=== PATIENT | female | born 1975 | race Caucasian/White ===

== ENCOUNTER 2017-11-03 20:46 | Emergency (ER) | payer BC ==
--- NOTE | 2017-11-03 21:25 | ED ---
Lower Extremity - HPI Summary HPI Summary: This patient is a 42 year old F presenting to [facility] c/o left hip pain that began today. Pt states she was sitting at work when she had a sudden onset of pain that got worse through-out the day. The patient rates the pain 8/10 in severity. Symptoms aggravated by walking and going up stairs. Patient reports hamstring swelling. Patient denies injury. Pt states she has not done a lot of physical labor or physical activity. Hx of trochanteric bursitis - History of Current Complaint Chief Complaint: EDExtremityLower Stated Complaint: RIGHT HIP/THIGH PAIN Time Seen by Provider: 11/03/17 21:16 Hx Obtained From: Patient Hx Last Menstrual Period: 11/21/11 Mechanism Of Injury: Other - none Onset of Pain: Immediate Onset/Duration: Still Present Severity Initially: Moderate Severity Currently: Severe Pain Intensity: 8 Pain Scale Used: 0-10 Numeric Timing: Constant Location: Is Discrete @ - right hip Associated Signs And Symptoms: Positive: Swelling - hamstring Able to Bear Weight: Yes - Allergies/Home Medications Allergies/Adverse Reactions: Allergies Allergy/AdvReac Type Severity Reaction Status Date / Time No Known Allergies Allergy Verified 11/03/17 20:56 PMH/Surg Hx/FS Hx/Imm Hx Endocrine/Hematology History: Denies: Hx Blood Transfusions, Hx Bone Marrow Disease, Hx Diabetes, Hx Thyroid Disease History: Denies: Hx Chronic Renal Failure Musculoskeletal History: Reports: Other Musculoskeletal History - trochanteric bursitis Neurological History: Denies: Hx CVA, Hx Transient Ischemic Attacks (TIA) - Surgical History Surgery Procedure, Year, and Place: cyst removed from left side face and bone graft 2010 Infectious Disease History: No Infectious Disease History: Denies: Traveled Outside the [place] in Last 30 Days - Family History Known Family History: Positive: Hypertension - Social History Occupation: Employed Full-time Lives: With Family Alcohol Use: Rare Substance Use Type: Reports: None Smoking Status (MU): Light Every Day Tobacco Smoker Review of Systems Negative: Fever Positive: Edema, Other - right hip pain All Other Systems Reviewed And Are Negative: Yes Physical Exam - Summary Physical Exam Summary: Appearance: Well-appearing, Well-nourished, lying in bed comfortably Skin: Warm, dry, no obvious rash Eyes: sclera anicteric, no conjunctival pallor ENT: mucous membranes moist, pharynx appears normal Neck: Supple, nontender Respiratory: Clear to auscultation, no signs of respiratory distress Cardiovascular: Normal S1, S2. No murmurs. Normal distal pulses in tibial and radial bilaterally. Abdomen: Soft, nontender, normal active bowel sounds present Musculoskeletal: TTP over the greater trochanter of the right femur,, Strength/ ROM Intact Neurological: A&Ox3, awake and alert, mentation is normal, speech is fluent and appropriate Psychiatric: affect is normal, does not appear anxious or depressed Triage Information Reviewed: Yes Vital Signs On Initial Exam: Initial Vitals Temp Pulse Resp BP Pulse Ox 98.7 F 106 16 161/95 98 11/03/17 20:53 11/03/17 20:53 11/03/17 20:53 11/03/17 20:53 11/03/17 20:53 Vital Signs Reviewed: Yes Diagnostics - Vital Signs Vital Signs Temp Pulse Resp BP Pulse Ox 11/03/17 20:53 98.7 F 106 16 161/95 98 - Laboratory Lab Statement: Any lab studies that have been ordered have been reviewed, and results considered in the medical decision making process. Lower Extremity Course/Dx - Course Assessment/Plan: This patient is a 42 year old F presenting to [facility] c/o left hip pain that began today. Pt states she was sitting at work when she had a sudden onset of pain that got worse through-out the day. The patient rates the pain 8/10 in severity. Symptoms aggravated by walking and going up stairs. Patient reports hamstring swelling. Patient denies injury. Pt states she has not done a lot of physical labor or physical activity. Hx of trochanteric bursitis. The patient was instructed to rest and use OTC the pain medications. She states she is able to do this because she has the next two days off. Dx. trochanteric bursitis. Patient will be discharged. The patient is agreeable with this plan. - Diagnoses Provider Diagnoses: Trochanteric bursitis Discharge - Sign-Out/Discharge Documenting (check all that apply): Patient Departure - Discharge Plan Condition: Good Disposition: HOME Patient Education Materials: Hip Bursitis (ED) Referrals: Lottie Catalan MD [Primary Care Provider] - Additional Instructions: This can take a number of weeks to go away completely. He can take over-the- counter analgesics for the pain and try to limit any activity that makes it worse. It does not seem like it is getting better and sometimes an injection can be done which will help, and this can be done by your orthopedic surgeon. - Billing Disposition and Condition Condition: GOOD Disposition: Home - Attestation Statements Document Initiated by Eva: Yes Documenting Scribe: Gómez De La Vega Provider For Whom Eva is Documenting (Include Credential): Phong Lopez MD Scribe Attestation: I, Gómez De La Vega , scribed for Phong Lopez MD on 11/04/17 at 0210. Scribe Documentation Reviewed: Yes Provider Attestation: The documentation as recorded by the Gómez block accurately reflects the service I personally performed and the decisions made by me, Phong Lopez MD
[2017-11-03 21:45] VITALS: BP 137/86
== END 2017-11-03 21:44 | disposition home or self-care (01) ==
LOC: ED 20:46
DX: M70.62 Trochanteric bursitis, left hip (principal); M25.552 Pain in left hip; M79.652 Pain in left thigh
CPT/HCPCS: 99284

== ENCOUNTER 2017-11-24 18:33 | Emergency (ER) | payer BC ==
[2017-11-24 18:50] VITALS: BP 154/85
--- NOTE | 2017-11-24 19:04 | UC ---
Knee Pain HPI - HPI Summary HPI Summary: The patient is a 42-year-old female that slipped and fell on wet grass today and injured her left hand. She occurred about 1:00. He is right handed. Pain is located around the left third MCP joint. Denies any wrist elbow or shoulder pain. She denies any other injury from the fall. She declines anything for pain. - History of Current Complaint Chief Complaint: UCUpperExtremity Stated Complaint: HAND INURY Time Seen by Provider: 11/24/17 18:57 Hx Obtained From: Patient Hx Last Menstrual Period: 11/12/17 Onset/Duration: Sudden Onset Severity Initially: Moderate Severity Currently: Moderate Pain Intensity: 7 Pain Scale Used: 0-10 Numeric Character: Aching, Throbbing Aggravating Factor(s): Movement Associated Signs And Symptoms: Positive: Swelling, Bruising Able to Bear Weight: Yes - Allergies/Home Medications Allergies/Adverse Reactions: Allergies Allergy/AdvReac Type Severity Reaction Status Date / Time medication for pink eye Allergy Blurred Uncoded 11/24/17 18:51 Vision Home Medications: Home Medications Levothyroxine TAB* [Synthroid 25 MCG TAB*] 25 mcg PO DAILY 11/24/17 [History Confirmed 11/24/17] PMH/Surg Hx/FS Hx/Imm Hx Previously Healthy: Yes - Surgical History Surgical History: Yes Surgery Procedure, Year, and Place: cyst removed from left side face and bone graft 2009. miniscus left leg 2013 - Family History Known Family History: Positive: Hypertension Negative: Cardiac Disease, Diabetes - Social History Alcohol Use: Rare Substance Use Type: None Smoking Status (MU): Light Every Day Tobacco Smoker When Did the Patient Quit Smoking/Using Tobacco: started again after 14 years d/ t divorce Review of Systems Constitutional: Negative Skin: Negative Eyes: Negative ENT: Negative Respiratory: Negative Cardiovascular: Negative Gastrointestinal: Negative Genitourinary: Negative Motor: Negative Neurovascular: Negative Musculoskeletal: Arthralgia Neurological: Negative Psychological: Negative All Other Systems Reviewed And Are Negative: Yes Physical Exam Triage Information Reviewed: Yes Appearance: Well-Appearing, No Pain Distress, Well-Nourished Vital Signs: Initial Vital Signs Temp 99.7 F 11/24/17 18:42 Pulse 90 11/24/17 18:42 Resp 12 11/24/17 18:42 BP 154/85 11/24/17 18:42 Pulse Ox 99 11/24/17 18:42 Vital Signs Reviewed: Yes Eyes: Positive: Conjunctiva Clear ENT: Positive: Hearing grossly normal. Negative: Nasal congestion, Nasal drainage, Trismus, Hoarse voice Neck: Positive: Supple, Nontender, No Lymphadenopathy Respiratory: Positive: Lungs clear, Normal breath sounds, No respiratory distress Cardiovascular: Positive: RRR, Pulses Normal Musculoskeletal: Positive: ROM Limited @ - left middle finger Psychological Exam: Normal Skin Exam: Normal Diagnostics - Radiology No standard instances Xray Interpretation: No Acute Changes Radiology Interpretation Completed By: ED Physician Knee Pain Course/Dx - Differential Dx/Diagnosis Provider Diagnoses: LMF sprain Discharge - Sign-Out/Discharge Documenting (check all that apply): Patient Departure All imaging exams completed and their final reports reviewed: No - Discharge Plan Condition: Stable Disposition: HOME Patient Education Materials: Finger Sprain (ED) Referrals: Lottie Catalan MD [Primary Care Provider] - 5 Days (recheck in 5-10 days if not better) Additional Instructions: ice elevate splint for comfort tylenol or advil for pain - Billing Disposition and Condition Condition: STABLE Disposition: Home Images Hands: 1 - tender/swollen
--- NOTE | 2017-11-25 07:58 | RAD ---
HISTORY: injury, pain third MCP joint COMPARISONS: None VIEWS: 3 , Frontal, lateral, and oblique views of the third digit of the left hand FINDINGS: BONE DENSITY: Normal. BONES: There is no displaced fracture. JOINTS: There is no arthropathy. ALIGNMENT: There is no dislocation. SOFT TISSUES: Unremarkable. OTHER FINDINGS: None. IMPRESSION: NO ACUTE OSSEOUS INJURY. IF SYMPTOMS PERSIST, RECOMMEND REPEAT IMAGING. R0
--- NOTE | 2017-11-25 08:42 | UC ---
- Progress Note Progress Note: Left middle finger x-ray from November 24, 2017 and has been read as no fracture by the radiologist. The provider who read the x-ray on November 24, 2017 also read it as no fracture therefore there is no discrepancy in the reads and no change in treatment. Discharge - Sign-Out/Discharge Documenting (check all that apply): Patient Departure All imaging exams completed and their final reports reviewed: Yes - Discharge Plan Condition: Stable Disposition: HOME Patient Education Materials: Finger Sprain (ED) Referrals: Lottie Catalan MD [Primary Care Provider] - 5 Days (recheck in 5-10 days if not better) Additional Instructions: ice elevate splint for comfort tylenol or advil for pain OFFICAL XR REPORT PENDING - Billing Disposition and Condition Condition: STABLE Disposition: Home
== END 2017-11-24 19:47 | disposition home or self-care (01) ==
LOC: UCEAST 18:33
DX: S63.613A Unspecified sprain of left middle finger, initial encounter (principal); Z88.9 Allergy status to unspecified drugs, medicaments and biological substances; W01.0XXA Fall on same level from slipping, tripping and stumbling without subsequent striking against object, initial encounter; Y92.9 Unspecified place or not applicable
CPT/HCPCS: 73140; 99212; G0463